=== PATIENT | female | born 1955 | race Asian ===

== ENCOUNTER 2023-04-01 15:48 | Emergency (ER) | payer BC, SELFPAY ==
[2023-04-01 15:55] VITALS: BP 107/66; PULSE 75; RESP 16; TEMP 37.3; O2SAT 94; BMI 17.2
--- NOTE | 2023-04-01 16:14 | ED_ITS ---
HPI - General Adult General Chief complaint: Unspecified Complaint, Adult Stated complaint: white stool Time Seen by Provider: 04/01/23 16:13 History of Present Illness HPI narrative: Pt c/o intermittent white stools since mid?January. Pt seen in urgent care and advised to come to ER. Pt states she has intermittent acid reflux and left sided abdominal pain that has been going on for a long time. Pt states she has not wanted to receive care for these things d/t worry about finances. Pt states her mental health has been very bad lately, but denies suicidal ideation. Pt says she has an appointment for this this Tuesday. 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 67-year-old woman presenting to the emergency department with concern of intermittent pale stools over the last 4+ weeks. She has also been having some left side abdominal discomfort also intermittently. She does have acid reflux. Went to urgent care today and was directed to the emergency department does have some concerns about gallbladder. This left-sided discomfort has been going on for quite some time. She says she has lost a lot of weight. This quantity over what duration is unspecified though at 1 point she does say 4 lb. Part of that is not having finances to eat well. She gets a lot of eggs and rice. The cafeteria food she thought she could eat is too salty. She has moved for this year from [place] where she still holds an apartment. Has been in the [place] for for many many years. She has been struggling with depression but no suicidal ideation. It sounds as though she is lonely. 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 Denies any travel where she might have obtained some parasites. No family history of biliary disease. Three years ago in return to [place] apparently did have evaluation for a health concerns sounds like particularly related to heartburn/reflux. There was what sounds like an EGD done. She notes that H pylori was not present, presumably from biopsy, and does not mention Carlton's/esophagitis. Related Data Home Medications Medication Instructions Recorded Confirmed heartburn medication 04/01/23 Allergies Allergy/AdvReac Type Severity Reaction Status Date / Time No Known Drug Allergies Allergy Verified 04/01/23 16:03 Review of Systems Status of ROS: Reports: 6 or more systems reviewed and unremarkable except as noted in History and below [facility] Social History Smoking Status: Never smoker Do you use any of these nicotine containing products: None Second hand tobacco smoke exposure: No How often do you have a drink containing alcohol: never AUDIT-C Alcohol total score: 0 Non-prescribed substance use: denies use Exam Narrative: Exam Narrative: Pleasant. Slim. Heavy Danish accident. Quiet. Cranial nerves 2-12 intact. There is no scleral icterus. Skin does not appear jaundiced. No rashes. Lungs are clear heart with regular rate rhythm. Abdomen with flat soft and nontender at this time. No masses are appreciated. No HSM appreciated Extremities are well perfused without edema. Moving all extremities with good strength. Const: Vital Signs, click to edit/add: Vital Signs - 24 hr 04/01/23 15:55 Temperature 99.2 F Pulse Rate [Pulse Oximeter] 75 Respiratory Rate 16 Blood Pressure [Ri t Upper Arm] 107/66 Pulse Oximetry 94 Oxygen Delivery Me thod Room Air Documenting provider has reviewed patient's vital signs: yes Course Vital Signs Vital signs: Initial Vital Signs Temperature 99.2 F 04/01/23 15:55 Temperature Source Temporal Artery Scan 04/01/23 15:55 Pulse Rate 75 04/01/23 15:55 Respiratory Rate 16 04/01/23 15:55 Blood Pressure 107/66 04/01/23 15:55 Blood Pressure Mean 79 04/01/23 15:55 Blood Pressure Position Sitting 04/01/23 15:55 Pulse Oximetry 94 04/01/23 15:55 Oxygen Delivery Method Room Air 04/01/23 15:55 Vital Signs Temperature 99.2 F 04/01/23 15:55 Pulse Rate 75 04/01/23 15:55 Respiratory Rate 16 04/01/23 15:55 Blood Pressure 107/66 04/01/23 15:55 Pulse Oximetry 94 04/01/23 15:55 Oxygen Delivery Method Room Air 04/01/23 15:55 Temperature 99.2 F 04/01/23 15:55 Pulse Rate 75 04/01/23 15:55 Respiratory Rate 16 04/01/23 15:55 Blood Pressure 107/66 04/01/23 15:55 Pulse Oximetry 94 04/01/23 15:55 Oxygen Delivery Method Room Air 04/01/23 15:55 Medical Decision Making MDM Narrative Medical decision making narrative: Weight loss certainly could be due to chronic pain, poor diet, depression, GERD, biliary or gallbladder disease. Hypothyroid? Abdominal exam would not yet suggest need for imaging. Will do broad lab analysis follow-up results accordingly. Might want to be on a PPI? Or famotidine? Stool testing for H pylori antigen? Vitamin analysis? Hypovitaminosis D? Might benefit from phototherapy? Labs are reassuring. I would anticipate outpatient follow-up. Lab Data Lab results reviewed: Yes I reviewed the patient's lab results Labs: Lab Results 04/01/23 04/01/23 04/01/23 Range/Units 16:41 16:41 16:41 WBC 7.03 (4.50-11.00) K/uL RBC 4.21 (4.00-5.20) m/uL Hgb 13.8 (12.0-16.0) gm/dL Hct 41.8 (33.0-51.0) % MCV 99 (80-100) fL MCH 33 (26-34) pg MCHC 33 (32-36) gm/dL RDW Coeff of Jeffrey 12.4 (11.5-15.5) % Plt Count 349 (140-440) K/uL Neut % (Auto) 76.4 H (42.0-72.0) % Lymph % (Auto) 17.5 L (20-44) % [place] % (Auto) 5.3 (0.0-11.0) % Eos % (Auto) 0.4 (0.0-7.0) % Baso % (Auto) 0.3 (0.0-3.0) % Neut # (Auto) 5.40 (1.7-7.0) K/uL Lymph # (Auto) 1.20 (0.90-2.90) K/uL [place] # (Auto) 0.40 (0.00-0.90) K/UL Eos # (Auto) 0.03 (0.00-0.50) K/uL Baso # (Auto) 0.02 (0.00-0.30) K/uL Abs Immat Gran (auto) 0.01 (0.00-0.30) K/uL Imm/Tot Granulo (auto) 0.1 % Sodium 136 (135-149) mmol/L Potassium 4.1 (3.6-5.1) mmol/L Chloride 94 L (96-114) mmol/L Carbon Dioxide 31 (20-32) mmol/L Anion Gap 11 (7-15) mEq/L BUN 15 (7-30) mg/dL Creatinine 0.7 (0.5-1.5) mg/dL Estimated Creat Clear 43.59 Estimated GFR 95 ml/min Glucose 134 H (60-115) mg/dL Calcium 9.9 (8.4-10.6) mg/dL Total Bilirubin 0.5 Cancelled (0.1-1.5) mg/dL Direct Bilirubin 0.0 Cancelled (0.0-0.5) mg/dL AST 38 H (12-35) U/L ALT (4-35) U/L Alkaline Phosphatase (40-150) U/L C-Reactive Protein (0.5-1.0) mg/dL Total Protein (6.0-8.3) g/dL Albumin (3.3-5.0) g/dL Lipase (23-300) U/L TSH (0.270-4.20) uIU/mL Urine Color (Yellow) Urine Appearance (Clear) Urine pH (5.0-8.5) Ur Specific [place] (1.000-1.030) Urine Protein (Negative) Urine Glucose (UA) (Negative) Urine Ketones (Negative) Urine Blood (Negative) Urine Nitrite (Negative) Urine Bilirubin (Negative) Urine Urobilinogen (0.2-1.0) Ur Leukocyte Esterase (Negative) Urine RBC (0-2) Urine WBC (0-5) Ur Squamous Epith Cells (None-Few) Urine Bacteria (None) Lab Acknowledgement 04/01/23 04/01/23 04/01/23 Range/Units 16:41 16:41 16:41 WBC (4.50-11.00) K/uL RBC (4.00-5.20) m/uL Hgb (12.0-16.0) gm/dL Hct (33.0-51.0) % MCV (80-100) fL MCH (26-34) pg MCHC (32-36) gm/dL RDW Coeff of Jeffrey (11.5-15.5) % Plt Count (140-440) K/uL Neut % (Auto) (42.0-72.0) % Lymph % (Auto) (20-44) % [place] % (Auto) (0.0-11.0) % Eos % (Auto) (0.0-7.0) % Baso % (Auto) (0.0-3.0) % Neut # (Auto) (1.7-7.0) K/uL Lymph # (Auto) (0.90-2.90) K/uL [place] # (Auto) (0.00-0.90) K/UL Eos # (Auto) (0.00-0.50) K/uL Baso # (Auto) (0.00-0.30) K/uL Abs Immat Gran (auto) (0.00-0.30) K/uL Imm/Tot Granulo (auto) % Sodium (135-149) mmol/L Potassium (3.6-5.1) mmol/L Chloride (96-114) mmol/L Carbon Dioxide (20-32) mmol/L Anion Gap (7-15) mEq/L BUN (7-30) mg/dL Creatinine (0.5-1.5) mg/dL Estimated Creat Clear Estimated GFR ml/min Glucose (60-115) mg/dL Calcium (8.4-10.6) mg/dL Total Bilirubin (0.1-1.5) mg/dL Direct Bilirubin (0.0-0.5) mg/dL AST Cancelled (12-35) U/L ALT 24 Cancelled (4-35) U/L Alkaline Phosphatase 78 Cancelled (40-150) U/L C-Reactive Protein < 0.5 L (0.5-1.0) mg/dL Total Protein 7.6 (6.0-8.3) g/dL Albumin (3.3-5.0) g/dL Lipase (23-300) U/L TSH (0.270-4.20) uIU/mL Urine Color (Yellow) Urine Appearance (Clear) Urine pH (5.0-8.5) Ur Specific [place] (1.000-1.030) Urine Protein (Negative) Urine Glucose (UA) (Negative) Urine Ketones (Negative) Urine Blood (Negative) Urine Nitrite (Negative) Urine Bilirubin (Negative) Urine Urobilinogen (0.2-1.0) Ur Leukocyte Esterase (Negative) Urine RBC (0-2) Urine WBC (0-5) Ur Squamous Epith Cells (None-Few) Urine Bacteria (None) Lab Acknowledgement 04/01/23 04/01/23 04/01/23 Range/Units 16:41 16:41 16:41 WBC (4.50-11.00) K/uL RBC (4.00-5.20) m/uL Hgb (12.0-16.0) gm/dL Hct (33.0-51.0) % MCV (80-100) fL MCH (26-34) pg MCHC (32-36) gm/dL RDW Coeff of Jeffrey (11.5-15.5) % Plt Count (140-440) K/uL Neut % (Auto) (42.0-72.0) % Lymph % (Auto) (20-44) % [place] % (Auto) (0.0-11.0) % Eos % (Auto) (0.0-7.0) % Baso % (Auto) (0.0-3.0) % Neut # (Auto) (1.7-7.0) K/uL Lymph # (Auto) (0.90-2.90) K/uL [place] # (Auto) (0.00-0.90) K/UL Eos # (Auto) (0.00-0.50) K/uL Baso # (Auto) (0.00-0.30) K/uL Abs Immat Gran (auto) (0.00-0.30) K/uL Imm/Tot Granulo (auto) % Sodium (135-149) mmol/L Potassium (3.6-5.1) mmol/L Chloride (96-114) mmol/L Carbon Dioxide (20-32) mmol/L Anion Gap (7-15) mEq/L BUN (7-30) mg/dL Creatinine (0.5-1.5) mg/dL Estimated Creat Clear Estimated GFR ml/min Glucose (60-115) mg/dL Calcium (8.4-10.6) mg/dL Total Bilirubin (0.1-1.5) mg/dL Direct Bilirubin (0.0-0.5) mg/dL AST (12-35) U/L ALT (4-35) U/L Alkaline Phosphatase (40-150) U/L C-Reactive Protein (0.5-1.0) mg/dL Total Protein Cancelled (6.0-8.3) g/dL Albumin 4.6 Cancelled (3.3-5.0) g/dL Lipase 144 Cancelled (23-300) U/L TSH 1.480 (0.270-4.20) uIU/mL Urine Color (Yellow) Urine Appearance (Clear) Urine pH (5.0-8.5) Ur Specific [place] (1.000-1.030) Urine Protein (Negative) Urine Glucose (UA) (Negative) Urine Ketones (Negative) Urine Blood (Negative) Urine Nitrite (Negative) Urine Bilirubin (Negative) Urine Urobilinogen (0.2-1.0) Ur Leukocyte Esterase (Negative) Urine RBC (0-2) Urine WBC (0-5) Ur Squamous Epith Cells (None-Few) Urine Bacteria (None) Lab Acknowledgement 04/01/23 04/01/23 Range/Units 16:45 18:15 WBC (4.50-11.00) K/uL RBC (4.00-5.20) m/uL Hgb (12.0-16.0) gm/dL Hct (33.0-51.0) % MCV (80-100) fL MCH (26-34) pg MCHC (32-36) gm/dL RDW Coeff of Jeffrey (11.5-15.5) % Plt Count (140-440) K/uL Neut % (Auto) (42.0-72.0) % Lymph % (Auto) (20-44) % [place] % (Auto) (0.0-11.0) % Eos % (Auto) (0.0-7.0) % Baso % (Auto) (0.0-3.0) % Neut # (Auto) (1.7-7.0) K/uL Lymph # (Auto) (0.90-2.90) K/uL [place] # (Auto) (0.00-0.90) K/UL Eos # (Auto) (0.00-0.50) K/uL Baso # (Auto) (0.00-0.30) K/uL Abs Immat Gran (auto) (0.00-0.30) K/uL Imm/Tot Granulo (auto) % Sodium (135-149) mmol/L Potassium (3.6-5.1) mmol/L Chloride (96-114) mmol/L Carbon Dioxide (20-32) mmol/L Anion Gap (7-15) mEq/L BUN (7-30) mg/dL Creatinine (0.5-1.5) mg/dL Estimated Creat Clear Estimated GFR ml/min Glucose (60-115) mg/dL Calcium (8.4-10.6) mg/dL Total Bilirubin (0.1-1.5) mg/dL Direct Bilirubin (0.0-0.5) mg/dL AST (12-35) U/L ALT (4-35) U/L Alkaline Phosphatase (40-150) U/L C-Reactive Protein (0.5-1.0) mg/dL Total Protein (6.0-8.3) g/dL Albumin (3.3-5.0) g/dL Lipase (23-300) U/L TSH (0.270-4.20) uIU/mL Urine Color Yellow (Yellow) Urine Appearance Clear (Clear) Urine pH 5.5 (5.0-8.5) Ur Specific [place] >= 1.030 (1.000-1.030) Urine Protein Negative (Negative) Urine Glucose (UA) Negative (Negative) Urine Ketones Negative (Negative) Urine Blood Negative (Negative) Urine Nitrite Negative (Negative) Urine Bilirubin Negative (Negative) Urine Urobilinogen 0.2 (0.2-1.0) Ur Leukocyte Esterase Negative (Negative) Urine RBC 0-2 (0-2) Urine WBC 0-2 (0-5) Ur Squamous Epith Cells Few (None-Few) Urine Bacteria Few A (None) Lab Acknowledgement Test Added Discharge Plan Discharge Clinical Impression: Other social stressor, Depression, Abdominal pain Patient Disposition: Home, Self-Care Condition: Stable Additional Instructions: Hoping to provide you with some information for some food relief. Do what you can to have a more balanced diet. This may help your abdominal pain. I hope you are able to make that psychiatric appointment next week. Remember that while you may maybe struggling with self confidence, there appear to be a lot of people around you that think you really have talent and want to learn from you; you inspire them. I think it would also be a good idea to establish primary care locally to continue this evaluation. See what that medication is that you are taking for your stomach. You might consider changing it to a medicine like famotidine for a while if it is a proton pump inhibitor like omeprazole. A basic lab for thyroid function is pending. Prescriptions: No Action heartburn medication Patient Comments: Pt unsure of name as it is from [facility] Follow Up/Referrals: Provider,Not a Local [Referring] - Stand Alone Forms: Social Median Info Instructions
[2023-04-01 16:48] LABS: Basophils Absolute Auto 0.02 K/uL (0.00-0.30); Basophils Percent Auto 0.3 % (0.0-3.0); Eosinophils Absolute Auto 0.03 K/uL (0.00-0.50); Eosinophils Percent Auto 0.4 % (0.0-7.0); Hematocrit 41.8 % (33.0-51.0); Hemoglobin* 13.8 gm/dL (12.0-16.0); Immature Granulocytes Abs Auto 0.01 K/uL (0.00-0.30); Immature Granulocytes Pct Auto 0.1 %; Lymphocytes Percent Auto 17.5 % (20-44); Mean Corpuscular HGB Conc 33 gm/dL (32-36); Mean Corpuscular Hemoglobin 33 pg (26-34); Mean Corpuscular Volume 99 fL (80-100); Monocytes Percent Auto 5.3 % (0.0-11.0); Neutrophils Percent Auto 76.4 % (42.0-72.0); Platelet Count* 349 K/uL (140-440); RDW Coefficient of Variation % 12.4 % (11.5-15.5); Red Blood Count 4.21 m/uL (4.00-5.20); White Blood Count* 7.03 K/uL (4.50-11.00)
[2023-04-01 16:58] LABS: Appearance Urine Clear (Clear); Bilirubin Urine Negative (Negative); Blood Urine Negative (Negative); Color Urine Yellow (Yellow); Glucose Urine Negative (Negative); Ketones Urine Negative (Negative); Leukocyte Esterase Urine Negative (Negative); Nitrite Urine Negative (Negative); Protein Urine Negative (Negative); Specific Gravity Urine >= 1.030 (1.000-1.030); Urobilinogen Urine 0.2 (0.2-1.0); pH Urine 5.5 (5.0-8.5)
[2023-04-01 16:59] LABS: Slide Review Reflex No
[2023-04-01 17:03] LABS: Chloride* 94 mmol/L (96-114)
[2023-04-01 17:04] LABS: Albumin* 4.6 g/dL (3.3-5.0); Potassium* 4.1 mmol/L (3.6-5.1); Sodium* 136 mmol/L (135-149)
[2023-04-01 17:06] LABS: Creatinine* 0.7 mg/dL (0.5-1.5); Est. Creatinine Clearance* 43.59; Estimated Glomerular Filt Rate 95 ml/min
[2023-04-01 17:07] LABS: Alanine Aminotransferase* 24 U/L (4-35); Alkaline Phosphatase* 78 U/L (40-150); Anion Gap 11 mEq/L (7-15); Aspartate Amino Transferase* 38 U/L (12-35); Bilirubin Total* 0.5 mg/dL (0.1-1.5); Blood Urea Nitrogen* 15 mg/dL (7-30); Carbon Dioxide* 31 mmol/L (20-32); Glucose* 134 mg/dL (60-115); Lipase* 144 U/L (23-300); Total Protein* 7.6 g/dL (6.0-8.3)
[2023-04-01 17:08] LABS: Calcium* 9.9 mg/dL (8.4-10.6)
[2023-04-01 17:12] LABS: C Reactive Protein* < 0.5 mg/dL (0.5-1.0)
[2023-04-01 17:15] LABS: Bacteria Urine Few; RBC Urine 0-2 (0-2); Squamous Epithelial Cell Urine Few (None-Few); WBC Urine 0-2 (0-5)
== END 2023-04-01 18:30 | disposition home or self-care (01) ==
PROVIDERS: Emergency Provider Family Medicine; PCP Family Medicine
DX: R10.9 Unspecified abdominal pain (principal); F32.A Depression, unspecified; Z63.79 Other stressful life events affecting family and household
CPT/HCPCS: 36415; 80048; 80076; 81001; 83690; 84443; 85025; 86140; 87086; 99283; 99284